=== PATIENT | male | born 1950 | race Caucasian/White ===

== ENCOUNTER 2017-08-09 14:47 | Inpatient (IN) | payer BC, MEDICARE ==
[2017-08-09 15:38] LABS: #Eosinphils 0.1 thou/uL (0.0-0.7); #Lymphocytes 1.2 thou/uL (1.20-3.40); #Monocytes 0.9 thou/uL (0.11-0.59); #Neutrophils 5.3 thou/uL (1.40-6.50); %Basophils 0.2 % (0.0-1.0); %Eosinophils 0.9 % (0.0-10.0); %Lymphocytes 16.6 % (21.0-51.0); %Monocytes 11.9 % (0.0-10.0); Mean Platelet Volume 7.5 fL (7.4-10.4); Red Blood Cell (RBC) Count 4.48 mill/uL (4.70-6.10); White Blood Cell (WBC) Count 7.5 thou/uL (4.8-10.8)
[2017-08-09 16:04] LABS: Troponin I Less than 0.010 ng/mL (< 0.028)
[2017-08-09 16:08] LABS: ALT (SGPT) 20 U/L (8-55); AST (SGOT) 19 U/L (5-34); Alkaline Phosphatase 89 U/L (40-150); Anion Gap 12 mmol/L (10-20); BUN (Urea Nitrogen) 21 mg/dL (8.4-25.7); Bilirubin, Total 0.4 mg/dL (0.2-1.2); CK (CPK) 71 U/L (30-200); Calc. Creatinine Clearance 0 mL/min (70-130); Calcium 9.8 mg/dL (7.8-10.44); Carbon Dioxide 27 mmol/L (23-31); Chloride 107 mmol/L (98-107); Estimated GFR-MDRD Greater than 90; Protein, Total 6.8 g/dL (5.8-8.1)
--- NOTE | 2017-08-09 16:10 | RAD ---
PORTABLE CHEST: History: Chest pain, atrial fibrillation. FINDINGS: Lungs are clear. No infiltrate. No evidence of vascular congestion or edema. Heart size is within nor mal range. IMPRESSION: No acute process. POS: [facility]
[2017-08-09] MEDS ORDERED: Acetaminophen 325 MG TAB PO PRN (18:24)
[2017-08-09] MEDS ORDERED: Enoxaparin Sodium 100 MG/ML SYRINGE ONE (18:25)
--- NOTE | 2017-08-09 21:29 | HP ---
DATE OF ADMISSION: 08/09/2017 PRIMARY CARE PHYSICIAN: Dr. Keating. ADMITTING PHYSICIAN: Dr. Juarez Don. CHIEF COMPLAINT: Heart palpitations. HISTORY OF PRESENT ILLNESS: The patient is a pleasant 67-year-old gentleman with history of prostate cancer and hypertension. The patient reports that since the summer, he has had intermittent bouts o f heart palpitations. He has never been worked up from a cardiac standpoint. Today, the palpitation s became worse and he stated that he had some weakness and felt like he was going to collapsed and hi t the floor, but he sat down prior to losing consciousness. EMS was called and the patient was found to be in atrial fibrillation with RVR. The patient did receive Cardizem and became rate controlled and continued to be in atrial fibrillation. During my interview, he is calm and at baseline and malachi es any other review of systems. REVIEW OF SYSTEMS: The following complete review of systems was negative, unless otherwise mentioned in the HPI or below: Constitutional: Weight loss or gain, sense of well-being, ability to conduct usual activities, exerc ise tolerance. Skin/Breast: Rash, itching, changes in hair growth or loss, nail changes, breast lumps, tenderness, swelling, nipple discharge. Eyes: Vision, double vision, tearing, blind spots, pain. ENT/Mouth: Headaches (location, time of onset, duration, precipitating factors), vertigo, lightheade dness, injury. Vision, double vision, tearing, blind spots, pain, nose bleeding, colds, obstruction, discharge, dental difficulties, gingival bleeding, dentures, neck stiffness, pain, tenderness, masses in thyroid or other areas. Cardiovascular: Precordial pain, substernal distress, palpitations, syncope, dyspnea on exertion, or thopnea, nocturnal paroxysmal dyspnea, edema, cyanosis, hypertension, heart murmurs, varicosities, ph lebitis, claudication. Respiratory: Pain, shortness of breath, wheezing, stridor, cough, hemoptysis, fever or night sweats. Gastrointestinal: Poor appetite, dysphagia, indigestion, abdominal pain, heartburn, eructation, naus ea, vomiting, hematemesis, jaundice, constipation, or diarrhea, abnormal stools (georgina-colored, tarry, bloody, greasy, foul smelling), flatulence, hemorrhoids, recent changes in bowel habits. Genitourinary: Urgency, frequency, dysuria, nocturia, hematuria, polyuria, oliguria, unusual (or chant[place] nge in) color of urine, stones, hesitancy, change in size of stream, dribbling, acute retention or in continence, libido, potency. Musculoskeletal: Pain, swelling, redness or heat of muscles or joints, limitation, of motion, muscul ar weakness, atrophy, cramps. Neurologic/Psychiatric: Convulsions, paralyses, tremor, incoordination, paresthesias, difficulties w ith memory of speech, sensory or motor disturbances, or muscular coordination (ataxia, tremor), emoti onal problems, anxiety, depression, previous psychiatric care, unusual perceptions, hallucinations. Allergy/Immunologic: Skin rash, anemia, bleeding tendency, polydipsia, polyuria, intolerance to heat or cold. PAST MEDICAL HISTORY: Significant for hypertension, which he is not currently taking medication for at this time, secondary to having normotensive readings. He also has a history of prostate cancer, w samsonh was treated with radiation therapy. He does have a 3-month history of heart palpitations. PAST SURGICAL HISTORY: Significant for appendectomy and tonsillectomy. PSYCHIATRIC HISTORY: Significant for depression. SOCIAL HISTORY: The patient is a preschool special education teacher. He stopped smoking and drinking in 1990. [place] with his where they care for several animals. FAMILY HISTORY: Reviewed and noncontributory to the case. HOME MEDICATIONS: Zoloft 50 mg once a day, aspirin intermittently. ALLERGIES: No known drug allergies. PHYSICAL EXAMINATION: VITAL SIGNS: Vital statistics, a temperature of 99.2, blood pressure 115/77, pulse 88, respirations 16, satting 97% on room air. GENERAL: He is pleasant, cooperative, nontoxic in appearance. HEAD: Normocephalic, atraumatic. EYES: PERRL. Extraocular muscles are intact. ENT: Ear exam normal. Tympanic membranes normal. Pharynx exam normal. Mouth exam pink and moist. NECK: Trachea midline. No meningeal signs. No tenderness. Supple. RESPIRATORY: Clear to auscultation bilaterally. CARDIOVASCULAR: Irregularly irregular heartbeat. No murmurs. ABDOMEN: Nontender, nondistended. Positive bowel sounds throughout. EXTREMITIES: No clubbing, cyanosis or edema. NEUROLOGIC: Alert and oriented x3. Full range of motion of all extremities. Cranial nerves II-XII are grossly intact. PSYCHIATRIC: Normal affect. LABORATORY DATA AND IMAGES: Portable chest x-ray shows no acute lung process. Cardiac enzymes: CK of 71, CK-MB of 1.7, BNP of 78.8, troponin I less than 0.01. CMP: Sodium 142, potassium 4.2, chlori de 107, carbon dioxide 27, BUN 21, creatinine 0.8, calcium 9.8, glucose 96, AST 19, ALT 20, alkaline phosphatase 89. CBC shows a white count of 7.5, hemoglobin 14.7, hematocrit 44.0 with platelets of 1 96,000. ASSESSMENT: 1. New onset atrial fibrillation with rapid ventricular response. 2. History of hypertension. PLAN: The patient will be admitted to telemetry. We will order echocardiogram. We will also reques t a Cardiology evaluation. We will continue calcium channel blockers for rate control and treat the patient with Lovenox 1 mg/kg b.i.d. We will defer long-term anticoagulation to projection camera operator based up on their evaluation.
[2017-08-09] MEDS: Enoxaparin Sodium 80 MG/0.8 ML SYRINGE SC SCH ×2 (21:37→22:12)
[2017-08-09 22:13] LABS: Troponin I 0.014 ng/mL (< 0.028)
[2017-08-09 23:14] VITALS: BMI 35.9
--- NOTE | 2017-08-09 23:22 | CON ---
DATE OF CONSULTATION: 08/09/2017 REASON FOR CONSULTATION: Atrial fibrillation with a rapid ventricular response, near syncopal episod e. HISTORY OF PRESENT ILLNESS: Mr. Sosa is a 67-year-old man. He was going to work today. He was s tanding upright when he started feeling extremely weak and lightheaded and that he may fall. Apparen tly, he did actually fall, but says he did not pass out. He just felt like he was going to come clos e. He says he did not feel his heart racing. He felt weak and dropped at the floor, did not hit his head because he remained conscious going to the ground. EMS was called and he was found to be in at rial fibrillation with a rapid rate. I do not see any strips to that, but that was the report. When he arrived here, he was given Cardizem and his heart rate was normal and felt better by then. He sa id he had another near syncopal episode several months ago. No chest pain or pressure. REVIEW OF SYSTEMS: Constitutional: No significant weight gain or loss. Vision: No changes. Heari ng: No changes. Pulmonary: No cough or wheezing. Gastrointestinal: No nausea, vomiting, diarrhea . Skin: No rashes. Neurologic: No unilateral weakness or numbness. Psychiatric: No unusual depr ession or anxiety. PAST MEDICAL HISTORY: Hypertension. PAST SURGICAL HISTORY: Tonsillectomy. SOCIAL HISTORY: No alcohol or tobacco. ALLERGIES: None known. MEDICATIONS: As listed as, diltiazem has been started here. No other medicines. PHYSICAL EXAMINATION: GENERAL: This is a pleasant 67-year-old man in no distress. VITAL SIGNS: Blood pressure 117/80, pulse 70s. EYES: Sclerae nonicteric. MOUTH: Mucous membranes moist. NECK: Supple, no lymphadenopathy. LUNGS: Clear, no wheezing, rales, or rhonchi. CARDIAC: Irregularly irregular. No murmur, rub, or gallop. ABDOMEN: Soft, nontender. EXTREMITIES: No clubbing or cyanosis. There is no edema. LABORATORY AND X-RAY FINDINGS: EKG reveals atrial fibrillation with controlled ventricular response. PERTINENT LABORATORY DATA: BNP is normal. Cardiac enzymes are negative. Hemoglobin is 14.7. ASSESSMENT: 1. Atrial fibrillation with a rapid ventricular response by report, although we will have any docume ntation of that by rhythm strips. 2. Near syncopal episode. PLAN: 1. I would recommend transesophageal echocardiogram and cardioversion tomorrow. 2. May need outpatient event monitoring. 3. Echocardiogram to be done as well transthoracic.
[2017-08-10 05:19] LABS: Anion Gap 9 mmol/L (10-20); BUN (Urea Nitrogen) 18 mg/dL (8.4-25.7); Calc. Creatinine Clearance 149 mL/min (70-130); Calcium 9.6 mg/dL (7.8-10.44); Carbon Dioxide 29 mmol/L (23-31); Chloride 107 mmol/L (98-107); Estimated GFR-MDRD Greater than 90
[2017-08-10 05:48] LABS: Hematocrit 42.1 % (42.0-52.0); Mean Platelet Volume 7.9 fL (7.4-10.4); Neutrophil 59 % (42-75); Reactive Lymphocytes 1 % (0-10); White Blood Cell (WBC) Count 5.5 thou/uL (4.8-10.8)
[2017-08-10] MEDS: Enoxaparin Sodium 80 MG/0.8 ML SYRINGE SC SCH (11:04)
[2017-08-10 11:11] VITALS: TEMP 97.8
--- NOTE | 2017-08-10 15:13 | PRG ---
DATE OF SERVICE: 08/10/2017 SUBJECTIVE: Mr. Sosa is doing well today. He converted to normal sinus rhythm last night. He is feeling well today. No chest pain or palpitations. OBJECTIVE: VITAL SIGNS: Blood pressure earlier 139/88, now 152/81, pulse 70. LUNGS: Clear. CARDIAC: Normal S1 and S2. LABORATORY DATA: Echocardiogram showed normal left ventricular function, normal study with trace lester vular insufficiency. No significant findings. Other laboratories: Hemoglobin is 14. His TSH is 1. 234, creatinine is 0.7. MCV 97.7. ASSESSMENT: 1. Episode of atrial fibrillation with rapid rate with near syncopal episodes. The ambulance indica marychuy the rate was very rapid with no strips available of that, but that was by report 2. CHADS VASc 2 with age 67 and history of hypertension. PLAN: 1. Recommend Xarelto 20 mg daily with evening meal. Discussed risk of bleeding including gastrointe stinal and intracranial bleeding. 2. Told to avoid aspirin and nonsteroidal anti-inflammatories. 3. Add metoprolol succinate 50 mg a day. The patient will be released home at this point to follow up in the office and arrange for outpatient monitoring as well.
[2017-08-10 17:06] VITALS: BP 139/74
--- NOTE | 2017-08-10 17:58 | DIS ---
DATE OF ADMISSION: 08/09/2017 DATE OF DISCHARGE: 08/10/2017 CONSULTANTS: Dr. Black Buckner, Cardiology Service. FINAL DIAGNOSES: 1. Episodes of atrial fibrillation with rapid ventricular rate with near syncopal episodes. 2. History of hypertension. HOSPITAL COURSE: The patient is a pleasant 67-year-old gentleman with history of prostate cancer and hypertension who had intermittent bouts of heart palpitations. Yesterday, the palpitations became w orse and he noticed some weakness and felt like he was going to collapse and hit the floor, but he sa t down prior to his losing consciousness and EMS was called. He was found to be in atrial fibrillati on with RVR. The patient received Cardizem and became rate controlled and continued to be in atrial fibrillation. After ER evaluation, he got admitted to the hospital for further evaluation. His card iac enzymes showed CK of 71, CK-MB of 1.7 and BNP of 78.8 with troponin I less than 0.01. CMP showed sodium of 142, potassium 4.2, chloride 107, CO2 27, BUN 21, creatinine 0.8. CBC showed a white coun t of 7.5, hemoglobin 14.7, hematocrit 44.0, platelet count 196,000. Echocardiogram was ordered. Car diology consultation was requested with Dr. Buckner and he was continued on calcium channel ramonita fo r rate control. Also, he was treated with Lovenox 1 mg/kg subcutaneously every 12 hours and he conve rted to sinus rhythm around 2:00 this morning. He was seen by Dr. Buckner who recommended Xarelto 20 mg daily with evening meal. The bleeding risk was discussed and he understands the high probability of this happening since he is on a blood thinner. He was told to avoid aspirin and nonsteroidal anti inflammatory agents. Also, he was placed on metoprolol succinate 50 mg once a day and echocardiogram did not show any abnormalities. The patient clinically is doing well. His blood pressure is 152/81 , pulse is 73, respiratory rate is 16, O2 saturation is 94% on room air. His temperature is 97.8. H e is able to ambulate without having any problems. He was seen and evaluated and examined before he is discharged home. DISCHARGE DISPOSITION: Home. DIET: Heart healthy, low salt. ACTIVITIES: As tolerated. MEDICATIONS: At the time of discharge, metoprolol succinate 50 mg once a day, Xarelto 20 mg once a d ay, sertraline, which is Zoloft 50 mg once a day, and vitamin D3 1000 units once a day. He is going to follow up with Dr. Buckner in 2-4 weeks and the discharge time is less than 30 minutes.
[2017-08-10] MEDS ORDERED: Rivaroxaban 10 MG TAB PO SCH (18:00)
== END 2017-08-10 17:35 | disposition home or self-care (01) | DRG 310 ==
LOC: ERS 14:47 → 2NO 17:28
PROVIDERS: ADMIT Internal Medicine Addiction Medicine; ATTEND Internal Medicine Addiction Medicine
DX: I48.91 Unspecified atrial fibrillation (principal); I10 Essential (primary) hypertension; Z85.46 Personal history of malignant neoplasm of prostate
CPT/HCPCS: 36415; 71010; 80048; 80053; 82550; 82553; 83880; 84443; 84484; 85025; 93005; 93306; 96372; J1650

== ENCOUNTER 2017-08-16 20:06 | Emergency (ER) | payer BC, MEDICARE ==
--- NOTE | 2017-08-16 20:33 | RAD ---
TWO VIEWS CHEST: 08/16/17 PROVIDED CLINICAL HISTORY: Cardiac arrhythmia. FINDINGS: Comparison is made with the study dated 08/09/17. The cardiac and mediastinal silhouette is within normal limits. panel monitor device overlies the c hest. There is no focal consolidation, pleural fluid or pneumothorax apparent. Degenerative changes a re seen involving the thoracic spine. IMPRESSION: No evidence for an acute cardiopulmonary process. POS: [facility]
[2017-08-16 20:53] LABS: #Eosinphils 0.1 thou/uL (0.0-0.7); #Lymphocytes 1.3 thou/uL (1.20-3.40); #Monocytes 1.2 thou/uL (0.11-0.59); #Neutrophils 5.8 thou/uL (1.40-6.50); %Basophils 0.6 % (0.0-1.0); %Eosinophils 1.3 % (0.0-10.0); %Lymphocytes 15.5 % (21.0-51.0); %Monocytes 14.5 % (0.0-10.0); Hematocrit 44.1 % (42.0-52.0); Mean Platelet Volume 7.3 fL (7.4-10.4); Red Blood Cell (RBC) Count 4.49 mill/uL (4.70-6.10); White Blood Cell (WBC) Count 8.6 thou/uL (4.8-10.8)
[2017-08-16 21:14] LABS: ALT (SGPT) 25 U/L (8-55); AST (SGOT) 18 U/L (5-34); Alkaline Phosphatase 94 U/L (40-150); Anion Gap 12 mmol/L (10-20); BUN (Urea Nitrogen) 22 mg/dL (8.4-25.7); Bilirubin, Total 0.3 mg/dL (0.2-1.2); CK (CPK) 56 U/L (30-200); Calc. Creatinine Clearance 0 mL/min (70-130); Carbon Dioxide 28 mmol/L (23-31); Chloride 105 mmol/L (98-107); Estimated GFR-MDRD Greater than 90; Protein, Total 6.9 g/dL (5.8-8.1)
[2017-08-16 21:19] LABS: Troponin I 0.018 ng/mL (< 0.028)
== END 2017-08-16 23:35 | disposition home or self-care (01) ==
LOC: ERS 20:06
DX: R55 Syncope and collapse (principal); I10 Essential (primary) hypertension; F41.9 Anxiety disorder, unspecified; F32.9 Major depressive disorder, single episode, unspecified; I48.91 Unspecified atrial fibrillation
CPT/HCPCS: 36415; 71020; 80053; 82550; 82553; 84484; 85025; 93005

== ENCOUNTER 2018-07-31 09:45 | Outpatient (CLI) | payer MEDICARE ==
--- NOTE | 2018-07-31 13:51 | CT ---
CT BRAIN WITH AND WITHOUT CONTRAST: 07/31/2018 HISTORY: A 67-year-old male with memory loss and syncope. TECHNIQUE: Precontrast scan of brain IV injection iodinated contrast media: Isovue-370 100 mL. Postcontrast scan of brain FINDINGS: There is no midline shift or any other mass effect. There is no evidence of acute intracranial hemor rhage, large cortical infarct, obstructive hydrocephalus, or extraaxial fluid collection. There is n o abnormal enhancement or mass. The calvarium is intact. IMPRESSION: No acute or aggressive intracranial findings. jn [] POS: [facility]
== END 2018-07-31 09:46 | disposition home or self-care (01) ==
LOC: SCSCT 09:45
PROVIDERS: ATTEND Internal Medicine Cardiovascular Disease
DX: R55 Syncope and collapse (principal)
CPT/HCPCS: 70470

== ENCOUNTER 2018-08-23 08:45 | Outpatient (CLI) | payer MEDICARE ==
--- NOTE | 2018-08-23 10:57 | MRI ---
MRI OF THE BRAIN WITHOUT AND WITH CONTRAST: COMPARISON: None. HISTORY: Memory loss since October of 2017. TECHNIQUE: Multiplanar, multisequence MR images were obtained of the brain without and with IV contrast. FINDINGS: The brain is normal in signal intensity on all obtained sequences. No restricted diffusion or abnorm al enhancement are appreciated. There is no evidence of hydrocephalus, intracranial hemorrhage, or extraaxial fluid collection. The expected flow voids are present. The corpus callosum, pituitary, and craniocervical junction are unr emarkable. The calvarium and overlying soft tissues are unremarkable. The visualized paranasal sinuses and mast oid air cells are well aerated. IMPRESSION: No significant intracranial abnormality. POS: [facility]
== END 2018-08-23 08:46 | disposition home or self-care (01) ==
LOC: SCSMRI 08:45
PROVIDERS: ATTEND Family Medicine
DX: R41.3 Other amnesia (principal)
CPT/HCPCS: 70553

== ENCOUNTER 2019-03-27 09:15 | Outpatient (CLI) | payer MEDICARE ==
[~2019-03-27 09:15] MED LIST: Iopamidol 370 76% 100 ML VIAL ONE
--- NOTE | 2019-03-27 11:50 | CT ---
CT abdomen and pelvis with and without IV contrast HISTORY: Prostate cancer. Orthostasis. FINDINGS: Each renal collecting system, ureter, and urinary bladder are decompressed without stone ap parent. Lung bases are clear. No renal masses. Mild arterial calcification. There are 2 significant right emma al arteries and one left renal artery. Degenerative changes of lumbar spine. Minimal degenerative spondylolisthesis at the L4-5 level. IMPRESSION: No acute abnormalities are demonstrated. Atherosclerosis.
== END 2019-03-27 09:16 | disposition home or self-care (01) ==
LOC: SCSCT 09:15
PROVIDERS: ATTEND Family Medicine
DX: I95.1 Orthostatic hypotension (principal); I70.90 Unspecified atherosclerosis; Z85.46 Personal history of malignant neoplasm of prostate
CPT/HCPCS: 74178; Q9967

== ENCOUNTER 2021-03-03 09:34 | Outpatient (CLI) | payer MEDICARE, OTHER ==
[2021-03-03 12:03] LABS: Bilirubin Neg (Negative); Blood, Urine Negative (Negative); Clarity Clear (Clear); Glucose, Urine (Dipstick) Normal (Negative); Ketone, Urine Negative (Negative); Leukocyte 25 (Negative); Nitrite Negative (Negative); Protein, Urine (Dipstick) Negative (Neg-Trace); Specific Gravity, Urine 1.015 (1.002-1.036); Urobilinogen Normal mg/dL (Less than 2)
[2021-03-03 12:06] LABS: Hemoglobin 13.6 g/dL (13.5-17.5); Mean Corpuscular HGB CONC 32.2 g/dL (32.0-36.0); Mean Corpuscular Hemoglobin 30.9 pg (27.0-33.0); Mean Corpuscular Volume 95.9 fl (81.2-95.1); Platelet Count 175 10x3/uL (150-450); RBC Distribution Width 12.9 % (11.5-14.5); White Blood Cell (WBC) Count 6.2 10x3/uL (3.5-10.5)
[2021-03-03 12:39] LABS: Anion Gap 11 mmol/L (10-20); BUN (Urea Nitrogen) 16 mg/dL (8.4-25.7); Calc. Creatinine Clearance 0 mL/min (70-130); Calcium 9.6 mg/dL (7.8-10.44); Carbon Dioxide 27 mmol/L (23-31); Chloride 106 mmol/L (98-107); Glucose 69 mg/dL (83-110); Potassium 4.1 mmol/L (3.5-5.1); Sodium 140 mmol/L (136-145)
[2021-03-03 12:45] LABS: Bacteria/HPF None Seen HPF (None Seen); RBC/HPF None Seen HPF (0-3); Squamous Epithelial None Seen HPF (0-3); WBC/HPF None Seen HPF (0-3)
== END 2021-03-03 09:35 | disposition home or self-care (01) ==
LOC: LABBT 09:34
PROVIDERS: ATTEND Urology
DX: Z01.818 Encounter for other preprocedural examination (principal); C61 Malignant neoplasm of prostate; N40.1 Benign prostatic hyperplasia with lower urinary tract symptoms; N32.81 Overactive bladder; Z92.3 Personal history of irradiation
CPT/HCPCS: 80048; 81001; 84153; 85027; 87086; 93005; 93010

== ENCOUNTER 2021-03-08 07:30 | Day surgery (SDC) | payer MEDICARE, OTHER ==
[2021-03-08] MEDS ORDERED: Levofloxacin 500 mg/D5W 100 ml Premix Bag ONE (09:12)
[2021-03-08] MEDS ORDERED: PROPOFOL 200 MG/20 ML VIAL ONE (09:38)
[2021-03-08] MEDS ORDERED: Lidocaine 1% PF 5 ML VIAL ONE (09:38)
[2021-03-08] MEDS ORDERED: Oxybutynin 5 MG TAB ONE (10:22)
[2021-03-08] MEDS ORDERED: Ketorolac Tromethamine 30 MG/ML VIAL ONE (10:22)
[2021-03-08] MEDS ORDERED: Phenazopyridine HCl 100 MG TAB ONE (10:25)
[2021-03-08] MEDS ORDERED: HYDROcodone/Acetaminophen 5/325 mg Tablet ONE (10:48)
== END 2021-03-08 12:45 | disposition home or self-care (01) ==
LOC: SDC 07:30
PROVIDERS: ATTEND Urology
PROC: 0T7D8DZ Dilation of Urethra with Intraluminal Device, Via Natural or Artificial Opening Endoscopic (ICD-10-PCS; principal; 2021-03-08)
DX: N40.1 Benign prostatic hyperplasia with lower urinary tract symptoms (principal); N13.8 Other obstructive and reflux uropathy; N32.89 Other specified disorders of bladder; N35.919 Unspecified urethral stricture, male, unspecified site; I48.0 Paroxysmal atrial fibrillation; I10 Essential (primary) hypertension; N52.9 Male erectile dysfunction, unspecified; N32.81 Overactive bladder; Z85.46 Personal history of malignant neoplasm of prostate; Z87.891 Personal history of nicotine dependence; Z79.82 Long term (current) use of aspirin; Z79.899 Other long term (current) drug therapy; Z88.8 Allergy status to other drugs, medicaments and biological substances
CPT/HCPCS: J1885; J1956; J2704; L8699